=== PATIENT | male | born 1995 | race Caucasian/White ===

== ENCOUNTER 2019-12-16 04:05 | Emergency (ER) | payer MEDICAID ==
[~2019-12-16] VITALS: Ht 185.4 cm; Wt 111.6 kg
[2019-12-16 04:10] VITALS: Ht 185.4 cm; Wt 111.6 kg
[2019-12-16 05:07] VITALS: BP 129/83
== END 2019-12-16 05:07 | disposition home or self-care (01) ==
LOC: ED 04:05
DX: L02.211 Cutaneous abscess of abdominal wall (principal)

== ENCOUNTER 2020-06-10 05:27 | Emergency (ER) | payer MEDICAID ==
[~2020-06-10] VITALS: Ht 185.4 cm; Wt 115.2 kg
[2020-06-10 05:40] VITALS: Ht 185.4 cm; Wt 115.2 kg
[2020-06-10 07:07] VITALS: BP 125/90
[2020-06-11 06:10] LABS: RAPID PLASMA REAGIN Reactive (Non Reactive)
== END 2020-06-10 07:07 | disposition home or self-care (01) ==
LOC: ED 05:27
PROVIDERS: Emergency Medicine
DX: A53.9 Syphilis, unspecified (principal); F17.210 Nicotine dependence, cigarettes, uncomplicated
CPT/HCPCS: 87491; 87591; 99406; J0696

== ENCOUNTER 2020-10-25 22:18 | Emergency (ER) | payer MEDICAID ==
[~2020-10-25] VITALS: Ht 185.4 cm; Wt 124.7 kg
[2020-10-25 22:30] VITALS: Ht 185.4 cm; Wt 124.7 kg
[2020-10-26 03:29] VITALS: BP 123/90
== END 2020-10-26 03:29 | disposition home or self-care (01) ==
LOC: ED 22:18
DX: M79.604 Pain in right leg (principal); M79.605 Pain in left leg; Z13.9 Encounter for screening, unspecified
CPT/HCPCS: J0561

== ENCOUNTER 2020-10-29 11:53 | Emergency (ER) | payer MEDICAID ==
[~2020-10-29] VITALS: Ht 185.4 cm; Wt 122.0 kg
[2020-10-29 12:08] VITALS: BP 126/82; Ht 185.4 cm; Wt 122.0 kg
[2020-11-02 07:07] LABS: RAPID PLASMA REAGIN Reactive (Non Reactive)
== END 2020-10-29 12:47 | disposition home or self-care (01) ==
LOC: ED 11:53
PROVIDERS: Emergency Medicine
DX: A53.9 Syphilis, unspecified (principal); F15.10 Other stimulant abuse, uncomplicated